=== PATIENT | male | born 1955 | race Hispanic/Latino ===

== ENCOUNTER → 2019-05-18 | Outpatient (CLI) | payer BC ==
[~2019-05-18] MED LIST: IOHEXOL 350 MG/ML 100ML INFUS..BTL IV ONE
== END | disposition home or self-care (01) ==
LOC: RAH 13:21
PROVIDERS: ATTEND Otolaryngology
DX: C73 Malignant neoplasm of thyroid gland (principal); C79.9 Secondary malignant neoplasm of unspecified site
CPT/HCPCS: 70491; 71260; Q9967

== ENCOUNTER 2020-07-11 13:00 | Inpatient (IN) | payer OTHER ==
[~2020-07-11] VITALS: Ht 170.2 cm; Wt 72.6 kg
[2020-07-11 11:54] LABS: BASOPHILS % (AUTO) 0.6 % (0.0-5.0); EOSINOPHILS % (AUTO) 1.6 % (0.0-8.0); HEMATOCRIT 39.7 % (42-54); LYMPHOCYTES % (AUTO) 31.6 % (21.0-51.0); MEAN CORPUSCULAR HEMOGLOBIN 30.6 pg (27.0-33.0); MEAN CORPUSCULAR HGB CONC 34.5 g/dL (32.0-36.0); MEAN CORPUSCULAR VOLUME 88.8 fL (79-99); MONOCYTES % (AUTO) 7.6 % (3.0-13.0); NEUTROPHILS % (AUTO) 58.5 % (40.0-77.0); PLATELET COUNT (AUTO) 312 K/uL (130-400); RED BLOOD CELL COUNT(AUTO) 4.47 MIL/uL (4.50-6.20); RED CELL DISTRIBUTION WIDTH 14.3 % (11.0-15.5); WHITE BLOOD COUNT (AUTO) 8.1 K/uL (4.8-10.8)
[2020-07-11 12:01] LABS: CREATININE 1.2 mg/dL (0.5-1.5); POTASSIUM 4.2 mmol/L (3.5-5.1)
[2020-07-11 12:04] LABS: INR 0.95 (0.85-1.15); PROTHROMBIN TIME 10.4 SEC (9.6-11.6)
[2020-07-11 12:05] LABS: PARTIAL THROMBOPLASTIN TIME 26.2 SEC (26.3-35.5)
[2020-07-13 13:50] VITALS: BP 120/79
[2020-07-13] MEDS ORDERED: LEVO175C2 PO (14:25)
[2020-07-13] MEDS ORDERED: AEC81 PO (14:25)
[2020-07-13] MEDS ORDERED: MULT-1367 PO (14:25)
[2020-07-14] VITALS (19 sets, daily range): BP systolic 116–154; BP diastolic 70–91
[2020-07-14] MEDS: CEFAZOLIN SODIUM 1 GM VIAL IVP ONE ×2 (12:45→14:39)
[2020-07-14] MEDS ORDERED: LIDOCAINE 1%-EPI 1:100,000 20 ML VIAL IJ ONE (12:58)
[2020-07-14] MEDS ORDERED: CEFAZOLIN SODIUM 1 GM VIAL ONE ×2 (12:58→13:00)
[2020-07-14] MEDS ORDERED: LACTATED RINGERS 1000ML 1,000 ML IV ONE (13:00)
[2020-07-14] MEDS ORDERED: ONDANSETRON 4MG INJ ONE ×3 (14:23→18:47)
[2020-07-14] MEDS ORDERED: LIDOCAINE PF 100MG/5ML (2%) SYRINGE 5ML ONE (14:23)
[2020-07-14] MEDS ORDERED: NEOSTIGMINE 5MG/5ML SYR IV ONE (14:23)
[2020-07-14] MEDS ORDERED: SUCCINYLCHOLINE CHLORIDE 20 MG/ML 10 ML VIAL ONE ×2 (14:23→14:24)
[2020-07-14] MEDS ORDERED: PROPOFOL 10 MG/ML 20ML VIAL IV ONE (14:23)
[2020-07-14] MEDS ORDERED: GLYCOPYRROLATE 1 MG/5 ML SYRINGE ONE (14:23)
[2020-07-14] MEDS ORDERED: DEXAMETHASONE SOD PHOSPHATE 10MG/ML 1ML VIAL ONE (14:23)
[2020-07-14] MEDS ORDERED: FENTANYL CITRATE PF 50 MCG/1 ML 2ML VIAL ONE ×3 (14:23→15:25)
[2020-07-14] MEDS ORDERED: ROCURONIUM 10MG/1ML SYR 10 MG/ML ML ONE (14:24)
[2020-07-14] MEDS ORDERED: MIDAZOLAM HCL 1 MG/ML 2ML VIAL ONE (14:24)
[2020-07-14] MEDS ORDERED: KETAMINE 50MG/ML SYRINGE 50 MG/ML DISP.SYRIN IV ONE (14:30)
[2020-07-14] MEDS ORDERED: NOREPINEPHRINE BITARTRATE 1 MG/1 ML ML IV ONE (15:14)
[2020-07-14] MEDS ORDERED: MEPERIDINE-PF 25 MG/ML SYG ONE (18:47)
[2020-07-14] MEDS ORDERED: MORPHINE 2 MG SYG ONE (23:14)
[2020-07-14] MEDS ORDERED: MORPHINE 4 MG SYG IV PRN (23:15)
[2020-07-15] VITALS (7 sets, daily range): BP systolic 107–121; BP diastolic 68–76
[2020-07-15] MEDS: MORPHINE 2 MG SYG IVP PRN ×3 (03:22→23:57)
[2020-07-15] MEDS: METOPROLOL TARTRATE 1 MG/ML 5ML VIAL IV SCH (21:30)
[2020-07-15] MEDS ORDERED: METOPROLOL TARTRATE 1 MG/ML 5ML VIAL IV ONE (21:36)
[2020-07-15] MEDS: METOPROLOL TARTRATE 25 MG TAB PO SCH (21:59)
[2020-07-16 04:29] VITALS: BP 100/66
[2020-07-16 05:40] LABS: BASOPHILS % (AUTO) 0.2 % (0.0-5.0); HEMATOCRIT 36.3 % (42-54); LYMPHOCYTES % (AUTO) 9.5 % (21.0-51.0); MEAN CORPUSCULAR HEMOGLOBIN 30.3 pg (27.0-33.0); MEAN CORPUSCULAR HGB CONC 34.4 g/dL (32.0-36.0); MEAN CORPUSCULAR VOLUME 87.9 fL (79-99); NEUTROPHILS % (AUTO) 79.8 % (40.0-77.0); PLATELET COUNT (AUTO) 304 K/uL (130-400); RED BLOOD CELL COUNT(AUTO) 4.13 MIL/uL (4.50-6.20); RED CELL DISTRIBUTION WIDTH 14.6 % (11.0-15.5); WHITE BLOOD COUNT (AUTO) 21.1 K/uL (4.8-10.8)
[2020-07-16 05:57] LABS: POTASSIUM 3.5 mmol/L (3.5-5.1)
[2020-07-16] MEDS: LEVOTHYROXINE 88 MCG TABLET PO SCH (06:36)
[2020-07-16 07:30] VITALS: BP 108/76
[2020-07-16] MEDS ORDERED: NON-FORMULARY MEDICATION 1 EACH (Levothyroxine Sodium (Levothyroxine) 175 MCG) PO SCH (07:30)
[2020-07-16] MEDS ORDERED: NON-FORMULARY MEDICATION 1 EACH (Multivitamin 1 EACH) PO SCH (09:00)
[2020-07-16] MEDS: METOPROLOL TARTRATE 25 MG TAB PO SCH ×2 (09:52→21:00)
[2020-07-16] MEDS: MULTIVITAMIN TABLET PO SCH (09:52)
[2020-07-16] MEDS: ASPIRIN 81 MG EC TAB PO SCH (09:52)
[2020-07-16 11:54] VITALS: BP 115/75
[2020-07-16 18:16] VITALS: BP 113/67
[2020-07-16] MEDS ORDERED: CEFTRIAXONE 1G VIAL IVP SCH (18:30)
[2020-07-16 20:44] VITALS: BP 120/85
[2020-07-16] MEDS: METOPROLOL TARTRATE 1 MG/ML 5ML VIAL IV SCH (21:30)
[2020-07-17 00:28] VITALS: BP 106/72
[2020-07-17 04:00] VITALS: BP 114/71
[2020-07-17 04:58] LABS: BASOPHILS % (AUTO) 0.2 % (0.0-5.0); EOSINOPHILS % (AUTO) 0.2 % (0.0-8.0); HEMATOCRIT 36.1 % (42-54); LYMPHOCYTES % (AUTO) 13.3 % (21.0-51.0); MEAN CORPUSCULAR HEMOGLOBIN 29.5 pg (27.0-33.0); MEAN CORPUSCULAR VOLUME 89.6 fL (79-99); MONOCYTES % (AUTO) 9.7 % (3.0-13.0); NEUTROPHILS % (AUTO) 76.1 % (40.0-77.0); PLATELET COUNT (AUTO) 307 K/uL (130-400); RED BLOOD CELL COUNT(AUTO) 4.03 MIL/uL (4.50-6.20); RED CELL DISTRIBUTION WIDTH 14.6 % (11.0-15.5); WHITE BLOOD COUNT (AUTO) 16.9 K/uL (4.8-10.8)
[2020-07-17 05:08] LABS: POTASSIUM 3.4 mmol/L (3.5-5.1)
[2020-07-17] MEDS: LEVOTHYROXINE 88 MCG TABLET PO SCH (06:23)
[2020-07-17] MEDS: METOPROLOL TARTRATE 25 MG TAB PO SCH (07:36)
[2020-07-17 08:03] VITALS: BP 124/71
[2020-07-17] MEDS: ASPIRIN 81 MG EC TAB PO SCH (08:08)
[2020-07-17] MEDS: MULTIVITAMIN TABLET PO SCH (08:08)
[2020-07-17] MEDS ORDERED: CALCIUM CARB 500MG CHEW TAB PO SCH ×3 (11:23→17:00)
[2020-07-17] MEDS ORDERED: CEPHALEXIN 500 MG CAPSULE PO SCH (11:23)
[2020-07-17] MEDS ORDERED: CALCITRIOL 0.25 MCG CAP PO SCH (11:30)
[2020-07-17 12:13] VITALS: BP 110/71
[2020-07-17] MEDS ORDERED: METO25 PO (13:42)
[2020-07-17] MEDS ORDERED: CALC500T13 PO (13:42)
[2020-07-17] MEDS ORDERED: CEPH500T PO (13:43)
[2020-07-17 17:49] VITALS: BP 15/73
[2020-07-17] MEDS ORDERED: METOPROLOL TARTRATE 25 MG TAB PO SCH (21:00)
[2020-07-18] MEDS ORDERED: CALCITRIOL 0.25 MCG CAP PO SCH (09:00)
[2021-01-04] MEDS ORDERED: METO25TA6 PO (11:29)
[2021-04-05] MEDS ORDERED: LEVO150C4 PO (12:22)
[2021-04-05] MEDS ORDERED: LEVO175C2 PO (12:22)
[2021-04-05] MEDS ORDERED: METO-408 PO (12:22)
== END 2020-07-17 17:00 | disposition home or self-care (01) | DRG 804 ==
LOC: EDSTATUS 13:00 → DAHIP 07-14 12:24 → 4BH 07-14 19:27
PROVIDERS: ADMIT Internal Medicine; ATTEND Internal Medicine
PROC: 07B20ZZ Excision of Left Neck Lymphatic, Open Approach (ICD-10-PCS; principal; 2020-07-14 14:21)
PROC: 0WJ60ZZ Inspection of Neck, Open Approach (ICD-10-PCS; 2020-07-16)
DX: R59.0 Localized enlarged lymph nodes (principal); I10 Essential (primary) hypertension; E83.51 Hypocalcemia; E87.8 Other disorders of electrolyte and fluid balance, not elsewhere classified; E03.9 Hypothyroidism, unspecified; N19 Unspecified kidney failure; Z20.822 Contact with and (suspected) exposure to COVID-19; Z85.850 Personal history of malignant neoplasm of thyroid
CPT/HCPCS: 36415; 80048; 82310; 83970; 85025; 85610; 85730; 88305; 88307; 88331; 88341; 88342; 93005; G0378; J0330; J0690; J0696; J1100; J2001; J2175; J2250; J2405; J2704; J2710; J3010; J3490; J7030; J7040; J7120; U0003

== ENCOUNTER 2021-01-05 05:56 | Day surgery (SDC) | payer OTHER ==
[2021-01-03 08:25] VITALS: BP 121/77
[2021-01-03 08:38] LABS: BASOPHILS % (AUTO) 0.7 % (0.0-5.0); EOSINOPHILS % (AUTO) 1.6 % (0.0-8.0); LYMPHOCYTES % (AUTO) 37.6 % (21.0-51.0); MEAN CORPUSCULAR HEMOGLOBIN 29.9 pg (27.0-33.0); MEAN CORPUSCULAR HGB CONC 33.8 g/dL (32.0-36.0); MEAN CORPUSCULAR VOLUME 88.5 fL (79-99); MONOCYTES % (AUTO) 8.3 % (3.0-13.0); NEUTROPHILS % (AUTO) 51.7 % (40.0-77.0); PLATELET COUNT (AUTO) 373 K/uL (130-400); RED BLOOD CELL COUNT(AUTO) 4.52 MIL/uL (4.50-6.20); RED CELL DISTRIBUTION WIDTH 14.7 % (11.0-15.5); WHITE BLOOD COUNT (AUTO) 7.4 K/uL (4.8-10.8)
[2021-01-03 08:45] LABS: CREATININE 1.1 mg/dL (0.5-1.5); POTASSIUM 4.2 mmol/L (3.5-5.1)
[2021-01-03 08:48] LABS: INR 0.97 (0.85-1.15); PROTHROMBIN TIME 10.6 SEC (9.6-11.6)
[2021-01-03 08:49] LABS: PARTIAL THROMBOPLASTIN TIME 26.2 SEC (26.3-35.5)
[2021-01-05] VITALS (18 sets, daily range): BP systolic 100–110; BP diastolic 62–76
[~2021-01-05] VITALS: Ht 167.6 cm; Wt 73.5 kg
[~2021-01-05 05:56] MED LIST changes: +AEC81 PO; +CALC500T13 PO; -IOHEXOL 350 MG/ML 100ML INFUS..BTL IV ONE; +LEVO175C2 PO; +METO25TA6 PO; +MULT-1367 PO
[2021-01-05] MEDS: CEFAZOLIN SODIUM 1 GM VIAL IVP SCH ×2 (06:00→08:10)
[2021-01-05] MEDS ORDERED: LACTATED RINGERS 1000ML 1,000 ML IV ONE (06:39)
[2021-01-05] MEDS ORDERED: LIDOCAINE 1%-EPI 1:100,000 20 ML VIAL IJ ONE (06:57)
[2021-01-05] MEDS ORDERED: BACITRACIN 28.4 GM OINT TP ONE (06:57)
[2021-01-05] MEDS ORDERED: LIDOCAINE PF 100MG/5ML (2%) SYRINGE 5ML ONE ×2 (07:14→10:24)
[2021-01-05] MEDS ORDERED: ONDANSETRON 4MG INJ ONE (07:14)
[2021-01-05] MEDS ORDERED: PROPOFOL 10 MG/ML 20ML VIAL IV ONE ×2 (07:14→09:52)
[2021-01-05] MEDS ORDERED: SUCCINYLCHOLINE CHLORIDE 20 MG/ML 10 ML VIAL ONE (07:14)
[2021-01-05] MEDS ORDERED: MIDAZOLAM HCL 1 MG/ML 2ML VIAL ONE (07:15)
[2021-01-05] MEDS ORDERED: ROCURONIUM 10MG/1ML SYR 10 MG/ML ML ONE (07:15)
[2021-01-05] MEDS ORDERED: FENTANYL CITRATE PF 50 MCG/1 ML 2ML VIAL ONE ×2 (07:17→08:14)
[2021-01-05] MEDS ORDERED: METHYLENE BLUE 5 MG/ML AMP ONE (07:50)
[2021-01-05] MEDS ORDERED: PROPOFOL 1000 MG/100 ML 100 ML IV ONE (07:59)
[2021-01-05] MEDS ORDERED: EPHEDRINE SULFATE 50 MG/ML AMPULE ONE (08:15)
[2021-01-05] MEDS ORDERED: NOREPINEPHRINE BITARTRATE 1 MG/1 ML ML IV ONE (09:52)
== END 2021-01-05 12:01 | disposition home or self-care (01) ==
LOC: DAH 05:56
PROVIDERS: ATTEND Otolaryngology
DX: C73 Malignant neoplasm of thyroid gland (principal); Z20.822 Contact with and (suspected) exposure to COVID-19; Z79.899 Other long term (current) drug therapy; Z79.01 Long term (current) use of anticoagulants; Z72.89 Other problems related to lifestyle; Z80.3 Family history of malignant neoplasm of breast; Z82.5 Family history of asthma and other chronic lower respiratory diseases; Z79.82 Long term (current) use of aspirin; Z95.1 Presence of aortocoronary bypass graft
CPT/HCPCS: 36415; 60252; 71045; 80048; 85025; 85610; 85730; 87635; 88305; 93005; A4215 ×2; A4221; A4222; A4223; A4606; A4649 ×3; A4663; A4930; A6260; C9803; J0330; J0690; J2001 ×2; J2250; J2405; J2704 ×3; J3010 ×2; J3490 ×3; J7120; Q9968

== ENCOUNTER 2021-04-06 05:57 | Day surgery (SDC) | payer OTHER ==
[2021-04-04 10:01] LABS: BASOPHILS % (AUTO) 1.1 % (0.0-5.0); HEMATOCRIT 41.1 % (42-54); LYMPHOCYTES % (AUTO) 39.9 % (21.0-51.0); MEAN CORPUSCULAR HEMOGLOBIN 29.7 pg (27.0-33.0); MEAN CORPUSCULAR HGB CONC 33.3 g/dL (32.0-36.0); MONOCYTES % (AUTO) 10.6 % (3.0-13.0); NEUTROPHILS % (AUTO) 46.2 % (40.0-77.0); PLATELET COUNT (AUTO) 331 K/uL (130-400); RED BLOOD CELL COUNT(AUTO) 4.62 MIL/uL (4.50-6.20); WHITE BLOOD COUNT (AUTO) 6.6 K/uL (4.8-10.8)
[2021-04-04 10:11] LABS: INR 0.96 (0.85-1.15); PROTHROMBIN TIME 10.5 SEC (9.6-11.6)
[2021-04-04 10:14] LABS: CREATININE 1.1 mg/dL (0.5-1.5); POTASSIUM 4.4 mmol/L (3.5-5.1)
[2021-04-05 10:57] VITALS: BP 121/83
[2021-04-06] VITALS (14 sets, daily range): BP systolic 114–132; BP diastolic 67–86
[~2021-04-06] VITALS: Ht 170.2 cm; Wt 73.5 kg
[~2021-04-06 05:57] MED LIST changes: -CALC500T13 PO; +LEVO150C4 PO; +METO-408 PO
[2021-04-06] MEDS ORDERED: LACTATED RINGERS 1000ML 1,000 ML IV ONE (06:42)
[2021-04-06] MEDS ORDERED: CEFAZOLIN SODIUM 1 GM VIAL ONE (06:43)
[2021-04-06] MEDS ORDERED: SUCCINYLCHOLINE CHLORIDE 20 MG/ML 10 ML VIAL ONE (07:14)
[2021-04-06] MEDS ORDERED: LIDOCAINE PF 100MG/5ML (2%) SYRINGE 5ML ONE (07:14)
[2021-04-06] MEDS ORDERED: PROPOFOL 10 MG/ML 20ML VIAL IV ONE (07:14)
[2021-04-06] MEDS: CEFAZOLIN SODIUM 2 GM VIAL IV SCH ×2 (07:14→08:09)
[2021-04-06] MEDS ORDERED: FENTANYL CITRATE PF 50 MCG/1 ML 2ML VIAL ONE (07:14)
[2021-04-06] MEDS ORDERED: LIDOCAINE 1%-EPI 1:100,000 20 ML VIAL IJ ONE (07:17)
[2021-04-06] MEDS ORDERED: LIOT50TA6 PO (07:18)
[2021-04-06] MEDS ORDERED: METHYLENE BLUE 5 MG/ML AMP ONE (07:18)
[2021-04-06] MEDS ORDERED: ROCURONIUM 10MG/1ML SYR 10 MG/ML ML ONE (08:10)
[2021-04-06] MEDS ORDERED: PHENYLEPHRINE HCL 10 MG/ML 1ML VIAL IV ONE (08:15)
[2021-04-06] MEDS ORDERED: GLYCOPYRROLATE 1 MG/5 ML SYRINGE ONE (09:04)
[2021-04-06] MEDS ORDERED: NEOSTIGMINE 5MG/5ML SYR IV ONE (09:04)
== END 2021-04-06 11:30 | disposition home or self-care (01) ==
LOC: DAH 05:57
PROVIDERS: ATTEND Otolaryngology
DX: C73 Malignant neoplasm of thyroid gland (principal); Z20.822 Contact with and (suspected) exposure to COVID-19; M19.90 Unspecified osteoarthritis, unspecified site; Z85.850 Personal history of malignant neoplasm of thyroid; Z79.01 Long term (current) use of anticoagulants; Z80.3 Family history of malignant neoplasm of breast; Z98.890 Other specified postprocedural states; E89.0 Postprocedural hypothyroidism; Z90.81 Acquired absence of spleen
CPT/HCPCS: 21555; 36415; 71045; 80048; 85025; 85610; 85730; 87635; 88305; 88331; 88332; 88334; 88341; 88342; 93005; A4215 ×2; A4221; A4222; A4223; A4600; A4606; A4649 ×3; A4663; A4930; A6260; C9803; J0330; J0690; J2001; J2370; J2704; J2710; J3010; J3490 ×2; J7120 ×2; Q9968